=== PATIENT | female | born 1975 | race Caucasian/White ===

== ENCOUNTER 2022-09-20 17:58 | Emergency (ER) | payer BC ==
[~2022-09-20] VITALS: Ht 152.4 cm; Wt 77.1 kg
[2022-09-20 18:10] VITALS: BP 136/72
[2022-09-20 22:40] LABS: Source, Urine Clean Catch
[2022-09-20 22:47] LABS: Bilirubin, Urine Neg (Neg); Blood, Urine 5+ (Neg); Glucose Qualitative, Urine Neg (Neg); Ketones, Urine Neg (Neg); Leukocyte Esterase, Urine 1+ (Neg); Nitrite, Urine Pos (Neg); Protein, Urine 2+ (Neg); Specific Gravity, Urine 1.015 (1.003-1.022); Urobilinogen, Urine NORM (Normal)
[2022-09-20 22:50] LABS: Appearance, Urine Hazy (Clear); Color, Urine Red (P-Yellow)
[2022-09-20 22:56] LABS: Bacteria Mod /hpf; Red Blood Cells, Urine TNTC /hpf (0-2); Squamous Epithelial Cells Rare /hpf (Few)
[2022-09-20] MEDS ORDERED: SULTRIDS PO (23:26)
[2022-09-20 23:48] LABS: Influenza A, PCR NEGATIVE (NEGATIVE); Influenza B, PCR NEGATIVE (NEGATIVE); Resp Syncytial Virus, PCR NEGATIVE (NEGATIVE)
[2022-09-21] LABS: SARS-Cov-2 (COVID-19) PCR, MMC POSITIVE (NEGATIVE)
[2022-09-21] MEDS ORDERED: SULTRIDS PO ×2 (00:23→00:24)
[2022-09-21] MEDS ORDERED: ONDA4ODT MM ×2 (00:23→00:24)
[2022-09-21] MEDS ORDERED: FAMO20 PO ×2 (00:23→00:24)
== END 2022-09-21 00:31 | disposition home or self-care (01) ==
LOC: ER 17:58
PROVIDERS: Student in an Organized Health Care Education/Training Program
DX: U07.1 COVID-19 (principal); N92.0 Excessive and frequent menstruation with regular cycle; N12 Tubulo-interstitial nephritis, not specified as acute or chronic; B34.9 Viral infection, unspecified; Z88.0 Allergy status to penicillin; Z88.1 Allergy status to other antibiotic agents; Z91.013 Allergy to seafood
CPT/HCPCS: 0241U; 81001; 81025; 87086; 99283; A9270